=== PATIENT | female | born 2000 | race Two or more races ===

== ENCOUNTER 2022-06-18 10:03 | Inpatient (IN) | payer OTHER ==
[~2022-06-18 10:03] MED LIST: BUPIVACAINE HCL/PF 0.5% (5MG/ML) 10 ML VIAL IJ ONE; LIDOCAINE HCL 1%, 10 MG/ML (20ML VIAL) NR ONE
[2022-06-18 10:12] VITALS: BMI 21.9
[2022-06-18] MEDS ORDERED: ACETAMINOPHEN 1000 MG/100 ML BAG IVPB ONE (11:27)
[2022-06-18] MEDS ORDERED: SODIUM CHLORIDE 0.9% 1000 ML INFUS.BAG IV ONE (11:27)
[2022-06-18] MEDS ORDERED: ACETAMINOPHEN INJECTION 100 ML IVPB ONE (11:43)
[2022-06-18 12:11] LABS: BASO % 0.6 % (0-2.0); EOS % 0.2 % (0-4.5); HEMATOCRIT 37.7 % (32.4-45.2); HEMOGLOBIN 12.9 GM/dL (10.7-15.3); LYMPH % 20.1 % (8-40); MCH 29.7 pg (25.7-33.7); MCHC 34.3 g/dl (32.0-36.0); MEAN CELL VOLUME 86.6 fl (80-96); MEAN PLT VOLUME 6.9 fl (7.5-11.1); MONO % 5.7 % (3.8-10.2); NEUT % 73.4 % (42.8-82.8); PLATELET COUNT 307 10^3/uL (134-434); RBC 4.35 M/mm3 (3.60-5.2); RDW 13.3 % (11.6-15.6); WHITE BLOOD COUNT 15.5 K/mm3 (4.0-10.0)
[2022-06-18 12:17] LABS: INR 1.15 (0.83-1.09); PROTHROMBIN TIME (PATIENT) 13.3 SEC (9.7-13.0)
[2022-06-18 12:20] LABS: ACTIVATED PTT 26.6 SECONDS (25.2-36.5)
[2022-06-18 12:31] LABS: BLOOD UREA NITROGEN 12.3 mg/dL (7-18); CALCIUM 9.1 mg/dL (8.5-10.1)
[2022-06-18 12:32] LABS: ALBUMIN 4.1 g/dl (3.4-5.0)
[2022-06-18 12:34] LABS: CREATININE 0.8 mg/dL (0.55-1.3)
[2022-06-18 12:36] LABS: BILIRUBIN,TOTAL 1.1 mg/dL (0.2-1); TOT PROT 7.4 g/dl (6.4-8.2)
[2022-06-18] MEDS ORDERED: PIPERACILLIN/TAZOB 3.375 GM 3.375 GM in DEXTROSE 5%-WATER - 50 ML IVPB ONE (13:06)
[2022-06-18 14:20] LABS: URINE APPEARANCE CLEAR; URINE BILIRUBIN NEGATIVE (NEGATIVE); URINE COLOR YELLOW; URINE GLUCOSE (UA) NEGATIVE (NEGATIVE); URINE KETONE NEGATIVE (NEGATIVE); URINE LEUK ESTERASE NEGATIVE (NEGATIVE); URINE NITRITE NEGATIVE (NEGATIVE); URINE PROTEIN TRACE (NEGATIVE); URINE UROBILINOGEN 0.2 mg/dL (0.2-1.0)
[2022-06-18] MEDS ORDERED: PIPERACILLIN/TAZOB 3.375 GM 3.375 GM/50 ML BAG IVPB ONE (14:25)
[2022-06-18] MEDS ORDERED: ACETAMINOPHEN 1000 MG/100 ML BAG IVPB PRN ×2 (18:44→22:17)
[2022-06-18] MEDS ORDERED: HYDROmorphone HCl 2 MG/ML VIAL IVPUSH PRN ×2 (18:44→22:17)
[2022-06-18] MEDS ORDERED: DEXTROSE 5%-0.45% SALINE 1,000 ML IV SCH (18:45)
[2022-06-18] MEDS ORDERED: DEXTROSE 5%-NORMAL SALINE 1,000 ML IV SCH (19:00)
[2022-06-18] MEDS ORDERED: MIDAZOLAM HCL 2 MG/2 ML SINGLE DOSE VIAL ONE (19:03)
[2022-06-18] MEDS ORDERED: PROPOFOL 40 ML ONE (19:03)
[2022-06-18] MEDS ORDERED: LIDOCAINE HCL/PF 2% SDV 5ML VIAL ONE (19:03)
[2022-06-18] MEDS ORDERED: ROCURONIUM BROMIDE 50 MG/5 ML SYRINGE ONE (19:05)
[2022-06-18] MEDS ORDERED: LIDOCAINE HCL 1%, 10 MG/ML (20ML VIAL) ONE (20:09)
[2022-06-18] MEDS ORDERED: BUPIVACAINE HCL/PF 0.25% (2.5MG/ML) 10 ML VIAL ONE (20:09)
[2022-06-18] MEDS ORDERED: ONDANSETRON 4 MG/2 ML VIAL ONE (20:50)
[2022-06-18] MEDS ORDERED: DEXAMETHASONE SOD PHOSPHATE 4 MG/1 ML VIAL ONE (20:50)
[2022-06-18] MEDS ORDERED: BUPIVACAINE HCL/PF 0.5% (5MG/ML) 10 ML VIAL IJ ONE ×2 (21:02)
[2022-06-18] MEDS ORDERED: LIDOCAINE HCL 1%, 10 MG/ML (20ML VIAL) NR ONE ×2 (21:02)
[2022-06-18] MEDS ORDERED: KETOROLAC TROMETHAMINE 30 MG/1 ML VIAL ONE (21:17)
[2022-06-18] MEDS ORDERED: oxyCODONE HCL 5 MG TABLET PO PRN ×2 (22:04→22:09)
[2022-06-18] MEDS ORDERED: DOCUSATE SODIUM 100 MG CAPSULE (FP) PO PRN (22:04)
[2022-06-18] MEDS ORDERED: LACTATED RINGERS SOLUTION 1,000 ML/1,000 ML INFUS.BAG IV SCH (22:15)
[2022-06-18] MEDS ORDERED: ONDANSETRON 4 MG/2 ML VIAL IVPUSH PRN (22:18)
[2022-06-18] MEDS ORDERED: LACTATED RINGERS SOLUTION 1,000 ML IV SCH (22:30)
[2022-06-19] VITALS: RESP 20
[2022-06-19] MEDS ORDERED: LACTATED RINGERS SOLUTION 1,000 ML/1,000 ML INFUS.BAG IV STA ×2 (01:42→01:44)
[2022-06-19] MEDS ORDERED: HYDROmorphone HCl 2 MG/ML VIAL IVPB PRN (01:56)
[2022-06-19] MEDS ORDERED: IBUPROFEN 600 MG TABLET (FP) PO PRN (03:30)
[2022-06-19] MEDS ORDERED: morphine SULFATE 4 MG/ML VIAL IVPUSH PRN (08:10)
[2022-06-19] MEDS ORDERED: oxyCODONE HCL 5 MG TABLET PO PRN (08:31)
[2022-06-19] MEDS ORDERED: ACETAMINOPHEN 1000 MG/100 ML BAG IVPB PRN (08:31)
[2022-06-19 10:45] LABS: BASO % 0.1 % (0-2.0); HEMATOCRIT 27.9 % (32.4-45.2); HEMOGLOBIN 9.9 GM/dL (10.7-15.3); LYMPH % 9.5 % (8-40); MCH 30.3 pg (25.7-33.7); MCHC 35.3 g/dl (32.0-36.0); MEAN CELL VOLUME 85.6 fl (80-96); MEAN PLT VOLUME 7.6 fl (7.5-11.1); MONO % 3.4 % (3.8-10.2); PLATELET COUNT 222 10^3/uL (134-434); RBC 3.26 M/mm3 (3.60-5.2); RDW 12.9 % (11.6-15.6); WHITE BLOOD COUNT 9.7 K/mm3 (4.0-10.0)
[2022-06-19 11:11] LABS: ALBUMIN 3.3 g/dl (3.4-5.0); CALCIUM 8.5 mg/dL (8.5-10.1)
[2022-06-19 11:12] LABS: BLOOD UREA NITROGEN 6.7 mg/dL (7-18); MAGNESIUM 1.9 mg/dL (1.8-2.4)
[2022-06-19 11:14] LABS: CREATININE 0.6 mg/dL (0.55-1.3)
[2022-06-19 11:15] LABS: PHOSPHOROUS 4.6 mg/dL (2.5-4.9)
[2022-06-19 11:16] LABS: BILIRUBIN,TOTAL 1.3 mg/dL (0.2-1)
[2022-06-19 17:34] VITALS: BP 103/40; PULSE 85; TEMP 98.7
== END 2022-06-19 18:44 | disposition home or self-care (01) | DRG 225 ==
LOC: JER 10:03 → JERBED 15:38 → J8W 23:30
PROVIDERS: ADMIT Internal Medicine; ATTEND Internal Medicine
PROC: 0DTJ4ZZ Resection of Appendix, Percutaneous Endoscopic Approach (ICD-10-PCS; principal; 2022-06-18 16:00)
DX: K35.80 Unspecified acute appendicitis (principal); R16.0 Hepatomegaly, not elsewhere classified; I95.1 Orthostatic hypotension; R01.1 Cardiac murmur, unspecified
CPT/HCPCS: 0241U-QW; 36415; 74177-TC; 80053; 81003; 82962; 83735; 84100; 84703; 85025; 85610; 85730; 86850; 86900; 86901; 88304-TC; 93005; 93010; 94760; 99285-25

== ENCOUNTER 2022-09-09 01:11 | Emergency (ER) | payer OTHER ==
[2022-09-09 01:48] VITALS: BP 114/65; PULSE 73; RESP 18; TEMP 98.1; BMI 19.1
[2022-09-09] MEDS ORDERED: ACETAMINOPHEN 1000 MG/100 ML BAG IVPB ONE (04:24)
[2022-09-09] MEDS ORDERED: ACETAMINOPHEN INJECTION 100 ML IVPB ONE (04:27)
[2022-09-09 04:57] LABS: EOS % 0.7 % (0-4.5); HEMATOCRIT 36.4 % (32.4-45.2); HEMOGLOBIN 12.8 GM/dL (10.7-15.3); MCH 29.4 pg (25.7-33.7); MEAN CELL VOLUME 83.8 fl (80-96); MEAN PLT VOLUME 6.8 fl (7.5-11.1); MONO % 7.6 % (3.8-10.2); NEUT % 58.7 % (42.8-82.8); PLATELET COUNT 275 10^3/uL (134-434); RBC 4.34 M/mm3 (3.60-5.2); RDW 13.6 % (11.6-15.6); WHITE BLOOD COUNT 7.9 K/mm3 (4.0-10.0)
[2022-09-09 05:09] LABS: INR 1.08 (0.83-1.09); PROTHROMBIN TIME (PATIENT) 12.5 SEC (9.7-13.0)
[2022-09-09 05:12] LABS: ACTIVATED PTT 30.8 SECONDS (25.2-36.5)
[2022-09-09 05:17] LABS: CALCIUM 8.8 mg/dL (8.5-10.1)
[2022-09-09 05:18] LABS: ALBUMIN 3.8 g/dl (3.4-5.0); BLOOD UREA NITROGEN 12.5 mg/dL (7-18)
[2022-09-09 05:21] LABS: CREATININE 0.7 mg/dL (0.55-1.3)
[2022-09-09 05:23] LABS: BILIRUBIN,TOTAL 0.5 mg/dL (0.2-1); TOT PROT 7.5 g/dl (6.4-8.2)
== END 2022-09-09 05:52 | disposition home or self-care (01) ==
LOC: JER 01:11
PROC: 3E033NZ Introduction of Analgesics, Hypnotics, Sedatives into Peripheral Vein, Percutaneous Approach (ICD-10-PCS; principal; 2022-09-09)
DX: R06.00 Dyspnea, unspecified (principal); Z20.822 Contact with and (suspected) exposure to COVID-19
CPT/HCPCS: 0241U-QW; 36415; 71046-TC-FY; 80053; 84484; 84703; 85025; 85379; 85610; 85730; 93005; 93010; 99285-25

== ENCOUNTER 2023-09-07 09:17 | Emergency (ER) | payer OTHER ==
[2023-09-07 09:31] VITALS: BP 116/72; PULSE 76; RESP 17; TEMP 98.3; BMI 22.8
[2023-09-07] MEDS ORDERED: FAMOTIDINE 20 MG/50 ML IVPB 20 MG/50 ML MG IVPB ONE (11:42)
[2023-09-07 11:48] LABS: EPI CELLS 21 /uL (0-25.1); HYALINE CASTS 1 /uL (0-3.1); PH,URINE >= 9.0 (5.0-8.0); URINE APPEARANCE CLOUDY; URINE BACTERIA 900 /uL (0-1359); URINE BILIRUBIN NEGATIVE (NEGATIVE); URINE COLOR ORANGE; URINE GLUCOSE (UA) NEGATIVE (NEGATIVE); URINE KETONE NEGATIVE (NEGATIVE); URINE LEUK ESTERASE TRACE (NEGATIVE); URINE NITRITE NEGATIVE (NEGATIVE); URINE PROTEIN 2+ (NEGATIVE); URINE RBC 1911 /uL (0-23.9); URINE WBC 141 /uL (0-25.8)
[2023-09-07 11:57] LABS: HCG,QUALITATIVE URINE NEGATIVE
[2023-09-07] MEDS: SODIUM CHLORIDE 0.9% 500 ML INFUS.BAG IV ONE (12:35)
[2023-09-07] MEDS: FAMOTIDINE 20 MG/50 ML IVPB 20 MG/50 ML MG IVPB ONE (12:36)
[2023-09-07 12:59] LABS: BASO % 0.8 % (0-2.0); EOS % 0.9 % (0-4.5); HEMATOCRIT 39.4 % (32.4-45.2); HEMOGLOBIN 13.1 GM/dL (10.7-15.3); MCH 28.3 pg (25.7-33.7); MCHC 33.3 g/dl (32.0-36.0); MEAN PLT VOLUME 7.2 fl (7.5-11.1); MONO % 5.9 % (3.8-10.2); NEUT % 66.4 % (42.8-82.8); PLATELET COUNT 287 10^3/uL (134-434); RBC 4.64 M/mm3 (3.60-5.2); RDW 14.2 % (11.6-15.6); WHITE BLOOD COUNT 7.5 K/mm3 (4.0-10.0)
[2023-09-07 13:14] LABS: POTASSIUM 4.1 mmol/L (3.5-5.1)
[2023-09-07 13:16] LABS: BLOOD UREA NITROGEN 10.7 mg/dL (7-18); CALCIUM 9.3 mg/dL (8.5-10.1)
[2023-09-07 13:17] LABS: ALBUMIN 4.3 g/dl (3.4-5.0)
[2023-09-07 13:20] LABS: CREATININE 0.7 mg/dL (0.55-1.3)
[2023-09-07 13:22] LABS: BILIRUBIN,TOTAL 0.8 mg/dL (0.2-1)
== END 2023-09-07 14:16 | disposition home or self-care (01) ==
LOC: JERFT 09:17 → JER 09:17
PROC: 3E033GC Introduction of Other Therapeutic Substance into Peripheral Vein, Percutaneous Approach (ICD-10-PCS; principal; 2023-09-07)
DX: R10.13 Epigastric pain (principal); R14.0 Abdominal distension (gaseous); R63.0 Anorexia; R11.0 Nausea; N39.0 Urinary tract infection, site not specified
CPT/HCPCS: 36415; 76705-TC; 80053; 81003; 83690; 84703; 85025; 87086; 99284-25